=== PATIENT | male | born 1950 | race Caucasian/White ===

== ENCOUNTER 2020-12-27 15:09 | IRF | payer MEDICARE, SELFPAY ==
[2020-12-27 15:10] VITALS: BP 130/65; PULSE 60; RESP 18; TEMP 35.9; O2SAT 97; BMI 33.9
--- NOTE | 2020-12-27 15:18 | ADMGEN ---
This patient, Kaitlyn Hdz, was admitted to [facility] Room 222-02. Patient/family oriented to hospital policies and general routines including ID bracelet, bed and alarms, visiting hours, pain management, procedures, bathroom and other care routines, personal items, smoking policy, room service/diet, and visiting hours. Information on how to activate the Rapid Response Team has been discussed. Patient/Family are encouraged to report perceived risks to care and to ask questions if they do not understand what they are told or what they should do.
[2020-12-27 17:12] LABS: Glucose Point of Care 156 mg/dl (65-105)
--- NOTE | 2020-12-27 17:37 | WPDREHABHP ---
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 Patient is followed by Dr. Clint Madrigal and Dr. Cam Landa for his neurological disorders. Patient presents to [facility] with 6 months progression of shuffling gait and rigidity. patient had a ARCELIA scan on 11/12/2020 which showed asymmetric abnormal mild decreased activity in the right sided caudate nucleus and putamen. Patient has had a differential diagnosis of parkinsonism, Parkinson's disease, autoimmune induced parkinsonism, NPH and drug-induced parkinsonism. Diagnosis is still eluting. Patient was placed on IV meth the prednisolone with fair improvements. Patient had a Marinelli score of 3/56 and then improved to 9/56 after large volume lumbar puncture. NPH is still not been ruled out. Workup lumbar puncture was essentially benign, autoimmune negative, id negative for COVID, UA with no evidence of UTI, nor RPR no HIV. Toxic metabolic workup was also benign. MRI of the CT demonstrated subacute L1 compression fracture. Please see discharge summary for further details. Treatment patient was placed on a trial of Sinemet without adequate response. Patient was given large volume LP for normal pressure hydrocephalus without very significant functional gains. Patient was placed on IV methylprednisone listen alone and will continue for 4 doses every Wednesday for presumed improvement. Recommendations are to start NPH eval only after 6 months once a bill Abilify has been weaned from his system. 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 Patient is to follow up with neurologist Dr. Madrigal and Dr. Ansari. patient's bipolar anxiety and depression worsen during his hospital stay Lexapro was increased to 20 mg daily. Outpatient psychiatrist was notified of this change. Outpatient psychiatrist also recommends increasing Depakote to 750 mg b.i.d. for anxiety and bipolar disorder due to low valproic acid level of 39. Bars will defer that to outpatient setting so that it does not affect the steroid trial. Outpatient psychiatrist is Dr. Cam Kearns. patient obstructive sleep apnea is treated by CPAP but patient declines its use. Patient's insomnia is treated with trazodone 100 mg at bedtime. Patient's hemoglobin A1c was 5.9 patient is on metformin 500 mg b.i.d.. His hypertension is treated with his home medicine of losartan 25 mg daily. Patient's hyperlipidemia is treated with his home medication of at a statin 40 mg daily. Patient did demonstrate some hematuria felt to be due to Hung trauma. Patient has remained incontinent and a condom cath unfortunately does not stay in place. His BPH is treated with his home medication of Flomax 0.4 mg daily. Patient is now being admitted to acute rehab to provide it overall improvement of his mobility back. Therapy was initiated at the acute care facility and the patient transferred to us from [facility] on 12/27/2020 FALLS OR SURGERIES: The patient has had [no] major surgeries in the 100 days prior to admission. he has had falls in the past. He has had no falls that have incurred injury Patient has been fully vaccinated for COVID. He has not been exposed to COVID via any interactions nor has symptoms of COVID., PRIOR LEVEL OF FUNCTION: Eating was [INDEPENDENT] Oral Care was [INDEPENDENT] Toileting Hygiene was [INDEPENDENT] Shower/Bathing
[2020-12-27] MEDS: ACETAMINOPHEN 325 MG TABLET 650 MG PO (20:38)
[2020-12-27] MEDS: DIVALPROEX SODIUM DR 250 MG TABEC 750 MG PO (20:40)
[2020-12-27] MEDS: traZODone HCL 50 MG TABLET 100 MG PO (20:41)
[2020-12-27] MEDS: CYANOCOBALAMIN 1,000 MCG TABLET 2000 MCG PO (20:41)
[2020-12-27] MEDS: polyethylene glycoL 3350 17 GM POWD.PACK PO (20:42)
[2020-12-27] MEDS: TAMSULOSIN HCL 0.4 MG CAPSULE PO (20:42)
[2020-12-27] MEDS: FOLIC ACID 1 MG TABLET PO (20:42)
[2020-12-27 22:00] VITALS: BP 106/45; PULSE 63; RESP 16; TEMP 36.3; O2SAT 96
[2020-12-27] MEDS: CALCIUM CARBONATE (TUMS) 500 MG (200 MG ELEMENTAL) PO (23:16)
[2020-12-28] MEDS: ACETAMINOPHEN 325 MG TABLET 650 MG PO ×2 (05:17→17:34)
[2020-12-28 05:46] LABS: Basophils Percent Auto 0.1 % (0.2-1.2); Hematocrit 41.9 % (42.0-52.0); Hemoglobin 14.5 g/dL (14.0-18.0); Immature Granulocyte Absolute 0.07 K/mm3 (0.00-0.031); Immature Granulocyte Percent A 0.8 % (0-0.5); Lymphocytes Absolute Auto 0.92 K/mm3 (0.9-3.2); Lymphocytes Percent Auto 10.4 % (18.3-44.2); Mean Corpuscular HGB Conc 34.6 g/dl (32-36); Mean Corpuscular Hemoglobin 29.7 pg (26-34); Mean Corpuscular Volume 85.7 fl (80-100); Mean Platelet Volume 9.6 fl (7.4-10.4); Monocytes Percent Auto 10.7 % (2.6-8.5); Neutrophils Absolute Auto 6.9 K/mm3 (1.3-6.7); Platelet Count Result 161 k/mm3 (150-375); Red Blood Count 4.89 M/mm3 (4.6-6.20); Red Cell Distribution Width 13.2 % (11.5-14.5); White Blood Count 8.9 K/mm3 (4.5-10.0)
[2020-12-28 06:00] VITALS: BP 131/79; PULSE 58; RESP 16; TEMP 36.6; O2SAT 96
[2020-12-28 06:12] LABS: Alanine Aminotransferase 76 U/L (4-50); Albumin Level 3.3 g/dL (3.5-5.1); Alkaline Phosphatase 36 U/L (38-126); Anion Gap 4 mmol/L (8-16); Aspartate Amino Transferase 24 U/L (17-59); Bilirubin,Total 0.5 mg/dL (0.2-1.3); Blood Urea Nitrogen 32 mg/dL (9-20); Calcium 8.8 mg/dL (8.4-10.2); Carbon Dioxide 27 mmol/L (22-30); Chloride 102 mmol/L (98-107); Estimated CRCL calculation 79 ml/min; Estimated Glomerular Filt Rate > 60; Glucose 118 mg/dL (75-110); Potassium 4.3 mmol/L (3.4-5.0); Sodium 133 mmol/L (137-145)
[2020-12-28 07:17] LABS: Glucose Point of Care 112 mg/dl (65-105)
[2020-12-28] MEDS: LIDOCAINE 5% PATCH 3 PATCH TRANSDERM (08:35)
[2020-12-28] MEDS: ENOXAPARIN 40 MG/0.4 ML SYRINGE SUB-Q (08:35)
[2020-12-28] MEDS: metFORMIN HCL 500 MG TABLET PO ×2 (08:36→17:33)
[2020-12-28] MEDS: LORATADINE 10 MG TABLET PO (08:36)
[2020-12-28] MEDS: PANTOPRAZOLE 40 MG TABLET PO (08:36)
[2020-12-28] MEDS: LOSARTAN POTASSIUM 25 MG TABLET PO (08:36)
[2020-12-28] MEDS: ESCITALOPRAM OXALATE 10 MG TABLET 20 MG PO (08:36)
[2020-12-28] MEDS: ASPIRIN 81 MG CHEWABLE TABLET PO (08:36)
[2020-12-28] MEDS: DIVALPROEX SODIUM DR 250 MG TABEC 500 MG PO (08:37)
[2020-12-28 10:00] VITALS: BMI 10.0
--- NOTE | 2020-12-28 10:40 | WPDNEURORHBP ---
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 Patient is followed by Dr. Clint Madrigal and Dr. Cam Landa for his neurological disorders. Patient presents to [facility] with 6 months progression of shuffling gait and rigidity. Patient had a ARCELIA scan on 11/12/2020 which showed asymmetric abnormal mild decreased activity in the right sided caudate nucleus and putamen. Patient has had a differential diagnosis of parkinsonism, Parkinson's disease, autoimmune induced parkinsonism, NPH and drug-induced parkinsonism. Diagnosis is still elusive.. Patient was placed on IV methylprednisolone with fair improvements. Patient had a Marinelli score of 3/56 and then improved to 9/56 after large volume lumbar puncture. NPH is still not been ruled out. Workup at [facility]: lumbar puncture was essentially benign, autoimmune negative, id negative for COVID, UA with no evidence of UTI, nor RPR no HIV. Toxic metabolic workup was also benign. MRI of the CT demonstrated subacute L1 compression fracture. Please see discharge summary for further details. Treatment at [facility]: patient was placed on a trial of Sinemet without adequate response. Patient was given large volume LP for normal pressure hydrocephalus without very significant functional gains. Abilify was discontinued with thoughts that this may be the cause of the rigidity. Patient was placed on IV methylprednisone with some mild improvements and will continue for 4 doses every Wednesday for presumed improvements. Recommendations are to start NPH eval only after 6 months once Abilify has been weaned from his system. 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 Patient is to follow up with neurologist Dr. Madrigal and Dr. Ansari Patient's bipolar anxiety and depression worsened during his hospital stay. Lexapro was increased to 20 mg daily. Outpatient psychiatrist was notified of this change. Outpatient psychiatrist also recommends increasing Depakote to 750 mg b.i.d. for anxiety and bipolar disorder due to low valproic acid level of 39. Will defer that to outpatient setting so that it does not affect the steroid trial. Outpatient psychiatrist is Dr. Cam Kearns. Patient obstructive sleep apnea is treated by CPAP but patient declines its use. Patient's insomnia is treated with trazodone 100 mg at bedtime. Patient's hemoglobin A1c was 5.9 patient and is on metformin 500 mg b.i.d.. His hypertension is treated with his home medicine of losartan 25 mg daily. Patient's hyperlipidemia is treated with his home medication of atarvastatin 40 mg daily. Patient did demonstrate some hematuria felt to be due to Hung trauma. Patient has remained incontinent and a condom cath unfortunately does not stay in place. His BPH is treated with his home medication of Flomax 0.4 mg daily. Patient is now being admitted to acute rehab to provide it overall improvement of his mobility back Therapy was initiated at the acute care facility and the patient transferred to us from [facility] on 12/27/2020 Patient with depressive mood and complaints of decreased mobility despite him doing well with PT this am. Review of Systems Constitutional: Constitutional: Reports difficulty sleeping Eyes: Eyes: Reports no additional eye complaints ENT: Reports neck pain Cardiovascular: Cardiovascular: Reports no additional cardiovascular complaints Respiratory: Respiratory: Reports no additional respiratory complaints Gastrointestinal: Gastrointestinal: Reports constipa
[2020-12-28 14:00] VITALS: BP 117/62; PULSE 64; RESP 16; TEMP 36.2; O2SAT 97
[2020-12-28 17:02] LABS: Glucose Point of Care 131 mg/dl (65-105)
[2020-12-28] MEDS: ONDANSETRON HCL ODT 4 MG TABLET PO (17:34)
[2020-12-28] MEDS: TAMSULOSIN HCL 0.4 MG CAPSULE PO (21:11)
[2020-12-28] MEDS: CALCIUM CARBONATE (TUMS) 500 MG (200 MG ELEMENTAL) PO (21:11)
[2020-12-28] MEDS: CYANOCOBALAMIN 1,000 MCG TABLET 2000 MCG PO (21:11)
[2020-12-28] MEDS: FOLIC ACID 1 MG TABLET PO (21:12)
[2020-12-28] MEDS: DIVALPROEX SODIUM DR 250 MG TABEC 750 MG PO (21:12)
[2020-12-28] MEDS: traZODone HCL 50 MG TABLET 100 MG PO (21:13)
[2020-12-28 21:48] VITALS: BP 104/56; PULSE 71; RESP 12; TEMP 36.3; O2SAT 96
[2020-12-29 06:00] VITALS: BP 108/58; PULSE 68; RESP 18; TEMP 36.1; O2SAT 96
[2020-12-29 06:45] LABS: Glucose Point of Care 69 mg/dl (65-105)
[2020-12-29] MEDS: ACETAMINOPHEN 325 MG TABLET 650 MG PO ×2 (06:52→17:55)
[2020-12-29] MEDS: DIVALPROEX SODIUM DR 250 MG TABEC 500 MG PO (08:56)
[2020-12-29] MEDS: ASPIRIN 81 MG CHEWABLE TABLET PO (08:56)
[2020-12-29] MEDS: metFORMIN HCL 500 MG TABLET PO ×2 (08:56→17:55)
[2020-12-29] MEDS: PANTOPRAZOLE 40 MG TABLET PO (08:56)
[2020-12-29] MEDS: LORATADINE 10 MG TABLET PO (08:56)
[2020-12-29] MEDS: ESCITALOPRAM OXALATE 10 MG TABLET 20 MG PO (08:57)
[2020-12-29] MEDS: LOSARTAN POTASSIUM 25 MG TABLET PO (08:57)
[2020-12-29] MEDS: ENOXAPARIN 40 MG/0.4 ML SYRINGE SUB-Q (08:57)
[2020-12-29] MEDS: LIDOCAINE 5% PATCH 3 PATCH TRANSDERM (08:58)
[2020-12-29] MEDS: polyethylene glycoL 3350 17 GM POWD.PACK PO ×2 (08:58→21:03)
--- NOTE | 2020-12-29 12:35 | PCSTNOTE ---
Please refer to the Bedside Swallow Evaluation in the EMR. Please note, silent aspiration cannot be ruled out at bedside.
[2020-12-29 14:00] VITALS: BP 90/53; PULSE 65; RESP 20; TEMP 36.2; O2SAT 96
--- NOTE | 2020-12-29 15:29 | WPDNEURORHBP ---
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 Patient is followed by Dr. Clint Madrigal and Dr. Cam Landa for his neurological disorders. Patient presents to [facility] with 6 months progression of shuffling gait and rigidity. Patient had a ARCELIA scan on 11/12/2020 which showed asymmetric abnormal mild decreased activity in the right sided caudate nucleus and putamen. Patient has had a differential diagnosis of parkinsonism, Parkinson's disease, autoimmune induced parkinsonism, NPH and drug-induced parkinsonism. Diagnosis is still elusive.. Patient was placed on IV methylprednisolone with fair improvements. Patient had a Marinelli score of 3/56 and then improved to 9/56 after large volume lumbar puncture. NPH is still not been ruled out. Workup at [facility]: lumbar puncture was essentially benign, autoimmune negative, id negative for COVID, UA with no evidence of UTI, nor RPR no HIV. Toxic metabolic workup was also benign. MRI of the CT demonstrated subacute L1 compression fracture. Please see discharge summary for further details. Treatment at [facility]: patient was placed on a trial of Sinemet without adequate response. Patient was given large volume LP for normal pressure hydrocephalus without very significant functional gains. Abilify was discontinued with thoughts that this may be the cause of the rigidity. Patient was placed on IV methylprednisone with some mild improvements and will continue for 4 doses every Wednesday for presumed improvements. Recommendations are to start NPH eval only after 6 months once Abilify has been weaned from his system. 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 Patient is to follow up with neurologist Dr. Madrigal and Dr. Ansari Patient's bipolar anxiety and depression worsened during his hospital stay. Lexapro was increased to 20 mg daily. Outpatient psychiatrist was notified of this change. Outpatient psychiatrist also recommends increasing Depakote to 750 mg b.i.d. for anxiety and bipolar disorder due to low valproic acid level of 39. Will defer that to outpatient setting so that it does not affect the steroid trial. Outpatient psychiatrist is Dr. Cam Kearns. Patient obstructive sleep apnea is treated by CPAP but patient declines its use. Patient's insomnia is treated with trazodone 100 mg at bedtime. Patient's hemoglobin A1c was 5.9 patient and is on metformin 500 mg b.i.d.. His hypertension is treated with his home medicine of losartan 25 mg daily. Patient's hyperlipidemia is treated with his home medication of atarvastatin 40 mg daily. Patient did demonstrate some hematuria felt to be due to Hung trauma. Patient has remained incontinent and a condom cath unfortunately does not stay in place. His BPH is treated with his home medication of Flomax 0.4 mg daily. Patient is now being admitted to acute rehab to provide it overall improvement of his mobility back Therapy was initiated at the acute care facility and the patient transferred to us from [facility] on 12/27/2020 Patient with depressive mood and complaints of decreased mobility despite him doing well with PT this am. Review of Systems Constitutional: Constitutional: Reports difficulty sleeping Eyes: Eyes: Reports no additional eye complaints ENT: Reports neck pain Cardiovascular: Cardiovascular: Reports no additional cardiovascular complaints Respiratory: Respiratory: Reports no additional respiratory complaints Gastrointestinal: Gastrointestinal: Reports constipa
[2020-12-29 16:42] LABS: Glucose Point of Care 84 mg/dl (65-105)
[2020-12-29] MEDS: CYCLOBENZAPRINE HCL 5 MG TABLET PO (17:56)
[2020-12-29 20:00] VITALS: PULSE 60; RESP 16; O2SAT 94
[2020-12-29] MEDS: TAMSULOSIN HCL 0.4 MG CAPSULE PO (21:03)
[2020-12-29] MEDS: FOLIC ACID 1 MG TABLET PO (21:03)
[2020-12-29] MEDS: DIVALPROEX SODIUM DR 250 MG TABEC 750 MG PO (21:03)
[2020-12-29] MEDS: traZODone HCL 50 MG TABLET 100 MG PO (21:03)
[2020-12-29] MEDS: CYANOCOBALAMIN 1,000 MCG TABLET 2000 MCG PO (21:04)
[2020-12-29 21:57] VITALS: BP 114/66; PULSE 60; RESP 16; TEMP 36.4; O2SAT 94
[2020-12-30 06:00] VITALS: BP 108/62; PULSE 65; RESP 16; TEMP 35.9; O2SAT 99
[2020-12-30 06:59] LABS: Glucose Point of Care 71 mg/dl (65-105)
[2020-12-30] MEDS: ASPIRIN 81 MG CHEWABLE TABLET PO (08:54)
[2020-12-30] MEDS: metFORMIN HCL 500 MG TABLET PO ×2 (08:54→17:25)
[2020-12-30] MEDS: polyethylene glycoL 3350 17 GM POWD.PACK PO ×2 (08:55→20:32)
[2020-12-30] MEDS: ESCITALOPRAM OXALATE 10 MG TABLET 20 MG PO (08:55)
[2020-12-30] MEDS: DIVALPROEX SODIUM DR 250 MG TABEC 500 MG PO (08:55)
[2020-12-30] MEDS: ENOXAPARIN 40 MG/0.4 ML SYRINGE SUB-Q (08:55)
[2020-12-30] MEDS: LORATADINE 10 MG TABLET PO (08:56)
[2020-12-30] MEDS: LOSARTAN POTASSIUM 25 MG TABLET PO (08:56)
[2020-12-30] MEDS: LIDOCAINE 5% PATCH 3 PATCH TRANSDERM (08:56)
[2020-12-30] MEDS: PANTOPRAZOLE 40 MG TABLET PO (08:56)
--- NOTE | 2020-12-30 10:50 | RPD ---
Addendum entered by Shweta Martines 12/30/20 11:37: Error on LOS: The patients anticipated length of stay is approximately 10-14 days. Original Note: INDIVIDUALIZED PLAN OF CARE FOR Kaitlyn Hdz Brief Synthesis of Pre-Admission Screen, Post-Admission Evaluation and Therapy Evaluations: The patient presents to rehab with autoimmune Parkinsonism. Comorbidities include asymmetric rigidity, constipation, bipolar disorder, obstructive sleep apnea, type 2 diabetes mellitus, insomnia, hypertension, hyperlipidemia, macroscopic hematuria, dysuria, and BPH. The complexity of the patient's medical management, nursing, and therapy needs require an inpatient rehab hospital stay with a physician-led interdisciplinary team approach. The patient?s needs will be best met in an intensive program vs. at a lower level of care. The patient requires physician services for medical oversight, management of complications in setting of present comorbidities, and coordination of care. Emotional needs will be monitored. The patient needs physician monitoring and treatment of asymmetric rigidity, constipation, bipolar disorder, obstructive sleep apnea, type 2 diabetes mellitus, insomnia, hypertension, hyperlipidemia, macroscopic hematuria, dysuria, BPH, monitoring for adverse reactions to new medications, monitoring of infection, and pain control. The patient requires nursing services for frequent neuro checks, anticoagulation therapy, medication management and education, pressure relief and skin care management, monitoring of labs, bowel and bladder training, diabetes management and education, IV administration, and fall/safety precautions. 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 Treatments may include: Therapeutic Exercise, Gait Training, Neuromuscular Re-education, Transfer Training, Community Reintegration, Bed Mobility, Patient/Family Education, Wheelchair Mobility Group Therapy/Concurrent Therapy Rationales: -Improve attention span during functional activities in a distracted environment. -Enhance problem solving and/or adequate judgment skills during functional activities in a distracted environment. -Promote increased safety awareness in a distracted environment to reduce fall risk with functional tasks, transfers, and ambulation to allow a more safe, self-sufficient return to the home environment. -Improve dynamic balance skills to promote safety and independence with functional activities in a distracted environment for maximum gain. Occupational Therapy: 5 days per week for 90 minutes. Treatments may include: Therapeutic Exercise, Therapeutic Activity, Cognitive Training, Self-Care Transfer Training, Community Reintegration, Home Management, Patient/Family Education, Wheelchair Mobility Training, Energy Conservation Training Group Therapy/Concurrent Therapy Rationales: -Allow therapist to observe and teach generalization and carry-over of skills learned in individual therapy. -Enhance problem solving and sequencing skills during therapeutic activities in a distracted environment. -Promote increased safety awareness in a realistic setting to reduce fall risk with functional tasks due to visual and verbal distractions. -Increase functional level with ADLs, ADL transfers and use of adaptive equipment through therapeutic activities with others while promoting safety to allow a more safe, self-sufficient return home. Medical Prognosis: Good Anticipated Length of Stay: 7 days Rehab Goals: Eating Goal: 06-Independent Oral Hygiene Goal: 06-Independent Toileting Hygiene Goal: 04-Supervision or Touching Assistance Shower/Bathe Self Goal: 04-Supervision or Touching Assistance Upper Body Dressing Goal: 04-Supervision or Touching Assistance [place]
[2020-12-30 11:04] VITALS: BMI 33.9
[2020-12-30] MEDS: methylPREDNISolone SOD SUCC 1,000 MG in DEXTROSE 5% 100 ML 200 MG IVPB (12:56)
[2020-12-30 14:00] VITALS: BP 119/71; PULSE 66; RESP 18; TEMP 36; O2SAT 97
--- NOTE | 2020-12-30 15:10 | PCPTNOTE ---
Kaitlyn Hdz was evaluated for a 2 wheeled walker on 12/30/2020 by this physical therapist. The 2 wheeled walker will resolve patient's mobility limitations and will be used for ADL's within the home. The patient can safely use the 2 wheeled walker. ?The 2 wheeled walked will resolve the patient?s mobility deficits, including posterior lean, balance deficits, and severe rigidity.
--- NOTE | 2020-12-30 16:22 | WPDNEURORHBP ---
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 Patient is followed by Dr. Clint Madrigal and Dr. Cam Landa for his neurological disorders. Patient presents to [facility] with 6 months progression of shuffling gait and rigidity. Patient had a ARCELIA scan on 11/12/2020 which showed asymmetric abnormal mild decreased activity in the right sided caudate nucleus and putamen. Patient has had a differential diagnosis of parkinsonism, Parkinson's disease, autoimmune induced parkinsonism, NPH and drug-induced parkinsonism. Diagnosis is still elusive.. Patient was placed on IV methylprednisolone with fair improvements. Patient had a Marinelli score of 3/56 and then improved to 9/56 after large volume lumbar puncture. NPH is still not been ruled out. Workup at [facility]: lumbar puncture was essentially benign, autoimmune negative, id negative for COVID, UA with no evidence of UTI, nor RPR no HIV. Toxic metabolic workup was also benign. MRI of the CT demonstrated subacute L1 compression fracture. Please see discharge summary for further details. Treatment at [facility]: patient was placed on a trial of Sinemet without adequate response. Patient was given large volume LP for normal pressure hydrocephalus without very significant functional gains. Abilify was discontinued with thoughts that this may be the cause of the rigidity. Patient was placed on IV methylprednisone with some mild improvements and will continue for 4 doses every Wednesday for presumed improvements. Recommendations are to start NPH eval only after 6 months once Abilify has been weaned from his system. 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 Patient is to follow up with neurologist Dr. Madrigal and Dr. Ansari Patient's bipolar anxiety and depression worsened during his hospital stay. Lexapro was increased to 20 mg daily. Outpatient psychiatrist was notified of this change. Outpatient psychiatrist also recommends increasing Depakote to 750 mg b.i.d. for anxiety and bipolar disorder due to low valproic acid level of 39. Will defer that to outpatient setting so that it does not affect the steroid trial. Outpatient psychiatrist is Dr. Cam Kearns. Patient obstructive sleep apnea is treated by CPAP but patient declines its use. Patient's insomnia is treated with trazodone 100 mg at bedtime. Patient's hemoglobin A1c was 5.9 patient and is on metformin 500 mg b.i.d.. His hypertension is treated with his home medicine of losartan 25 mg daily. Patient's hyperlipidemia is treated with his home medication of atarvastatin 40 mg daily. Patient did demonstrate some hematuria felt to be due to Hung trauma. Patient has remained incontinent and a condom cath unfortunately does not stay in place. His BPH is treated with his home medication of Flomax 0.4 mg daily. Patient is now being admitted to acute rehab to provide it overall improvement of his mobility back Therapy was initiated at the acute care facility and the patient transferred to us from [facility] on 12/27/2020 Patient able to participate with therapy. Movements are slow. Review of Systems Review of Systems: Narrative: Patient with chronic pain and pessimisn Functional Status Ambulation Ability Ability to Ambulate 10 Feet: Total Assistance X 1 Ability to Ambulate 50 Feet With 2 Turns: Total Assistance X 1 Ability to Ambulate 150 Feet: Total Assistance X 1 Ambulation Assistive Devices: Walker, Wheeled Exam Const: General: cooperative and no acute distress Nutriti
[2020-12-30 17:19] LABS: Glucose Point of Care 132 mg/dl (65-105)
[2020-12-30] MEDS: CYANOCOBALAMIN 1,000 MCG TABLET 2000 MCG PO (20:29)
[2020-12-30] MEDS: traZODone HCL 50 MG TABLET 100 MG PO (20:30)
[2020-12-30] MEDS: DIVALPROEX SODIUM DR 250 MG TABEC 750 MG PO (20:30)
[2020-12-30] MEDS: TAMSULOSIN HCL 0.4 MG CAPSULE PO (20:31)
[2020-12-30] MEDS: FOLIC ACID 1 MG TABLET PO (20:33)
[2020-12-30 22:00] VITALS: BP 120/70; PULSE 64; RESP 16; TEMP 36.3; O2SAT 98
[2020-12-30] MEDS: ACETAMINOPHEN 325 MG TABLET 650 MG PO (22:46)
[2020-12-31] MEDS: ACETAMINOPHEN 325 MG TABLET 650 MG PO (05:54)
[2020-12-31 06:00] VITALS: BP 141/97; PULSE 69; RESP 22; TEMP 35.8; O2SAT 100
[2020-12-31 06:10] LABS: Glucose Point of Care 132 mg/dl (65-105)
[2020-12-31 08:00] VITALS: PULSE 69; RESP 22; O2SAT 94
[2020-12-31] MEDS: PANTOPRAZOLE 40 MG TABLET PO (09:50)
[2020-12-31] MEDS: metFORMIN HCL 500 MG TABLET PO ×2 (09:50→17:03)
[2020-12-31] MEDS: ASPIRIN 81 MG CHEWABLE TABLET PO (09:51)
[2020-12-31] MEDS: DIVALPROEX SODIUM DR 250 MG TABEC 500 MG PO (09:51)
[2020-12-31] MEDS: LORATADINE 10 MG TABLET PO (09:52)
[2020-12-31] MEDS: LOSARTAN POTASSIUM 25 MG TABLET PO (09:52)
[2020-12-31] MEDS: ESCITALOPRAM OXALATE 10 MG TABLET 20 MG PO (09:52)
[2020-12-31] MEDS: ENOXAPARIN 40 MG/0.4 ML SYRINGE SUB-Q (09:52)
[2020-12-31] MEDS: polyethylene glycoL 3350 17 GM POWD.PACK PO ×2 (10:04→20:48)
--- NOTE | 2020-12-31 11:53 | PCPTNOTE ---
Sara Barrios PTA completed an inpatient rehab wheelchair evaluation on Kaitlyn Hdz on 12/31/2020. The patient is unable to safely and independently ambulate household distances due to their current impairments. Their diagnosis is AUTOIMMUNE PARKINSONISM and their impairments include decreased strength, decreased endurance, decreased range of motion, decreased balance and lower extremity weakness. Kaitlyn's weight bearing status is weight-bearing as tolerated on the bilateral lower legs. The patient demonstrates significant functional mobility limitations that impair their ability to participate in mobility-related activities of daily living (MRADLs), including toileting, feeding, dressing, grooming, and bathing in the customary locations in the home. These limitations cannot be sufficiently resolved by the use of an appropriately fitted cane or walker. It is recommended that the patient utilize a wheelchair for functional mobility within the home in order to facilitate optimal safety, independence and participation in all MRADL's and adequately access their home environment on a regular basis. The patient's home provides adequate access between rooms, maneuvering space, and surfaces to accommodate the recommended wheelchair. The use of a wheelchair for functional mobility is strongly recommended and the patient is receptive to using the wheelchair. The use of this wheelchair will significantly improve the patient's ability to participate in MRADLS and the patient will use it on a regular basis in the home. This will facilitate optimal safety, independence, and participation. The patient has demonstrated sufficient physical and mental capabilities needed to safely propel a manual wheelchair that is provided in the home during a typical day. Recommended Wheelchair Frame: Standard Recommended Wheelchair Size: 18x18 Recommended Wheelchair Cushion:Standard Wheelchair Leg Recommendations: Swing away -Anti-tippers are recommended due to patient demonstrating increased risk for falls. They would benefit from anti-tippers with added safety and stabilization. Sara Zaragozalang SKELTON 12/31/2020 Evaluating Therapist Date I agree with and certify that the above recommendation is medically necessary. Referring Physician Date I agree with and certify that the above recommendation is medically necessary. Referring Physician Date
[2020-12-31 14:00] VITALS: BP 143/80; PULSE 69; RESP 22; TEMP 36.4; O2SAT 94
--- NOTE | 2020-12-31 14:20 | WPDNEURORHBP ---
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 Patient is followed by Dr. Clint Madrigal and Dr. Cam Landa for his neurological disorders. Patient presents to [facility] with 6 months progression of shuffling gait and rigidity. Patient had a ARCELIA scan on 11/12/2020 which showed asymmetric abnormal mild decreased activity in the right sided caudate nucleus and putamen. Patient has had a differential diagnosis of parkinsonism, Parkinson's disease, autoimmune induced parkinsonism, NPH and drug-induced parkinsonism. Diagnosis is still elusive.. Patient was placed on IV methylprednisolone with fair improvements. Patient had a Marinelli score of 3/56 and then improved to 9/56 after large volume lumbar puncture. NPH is still not been ruled out. Workup at [facility]: lumbar puncture was essentially benign, autoimmune negative, id negative for COVID, UA with no evidence of UTI, nor RPR no HIV. Toxic metabolic workup was also benign. MRI of the CT demonstrated subacute L1 compression fracture. Please see discharge summary for further details. Treatment at [facility]: patient was placed on a trial of Sinemet without adequate response. Patient was given large volume LP for normal pressure hydrocephalus without very significant functional gains. Abilify was discontinued with thoughts that this may be the cause of the rigidity. Patient was placed on IV methylprednisone with some mild improvements and will continue for 4 doses every Wednesday for presumed improvements. Recommendations are to start NPH eval only after 6 months once Abilify has been weaned from his system. 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 Patient is to follow up with neurologist Dr. Madrigal and Dr. Ansari Patient's bipolar anxiety and depression worsened during his hospital stay. Lexapro was increased to 20 mg daily. Outpatient psychiatrist was notified of this change. Outpatient psychiatrist also recommends increasing Depakote to 750 mg b.i.d. for anxiety and bipolar disorder due to low valproic acid level of 39. Will defer that to outpatient setting so that it does not affect the steroid trial. Outpatient psychiatrist is Dr. Cam Kearns. Patient obstructive sleep apnea is treated by CPAP but patient declines its use. Patient's insomnia is treated with trazodone 100 mg at bedtime. Patient's hemoglobin A1c was 5.9 patient and is on metformin 500 mg b.i.d.. His hypertension is treated with his home medicine of losartan 25 mg daily. Patient's hyperlipidemia is treated with his home medication of atarvastatin 40 mg daily. Patient did demonstrate some hematuria felt to be due to Hung trauma. Patient has remained incontinent and a condom cath unfortunately does not stay in place. His BPH is treated with his home medication of Flomax 0.4 mg daily. Patient is now being admitted to acute rehab to provide it overall improvement of his mobility back Therapy was initiated at the acute care facility and the patient transferred to us from [facility] on 12/27/2020 12/31/[address] Kearns regarding depakote dosing. Dtr relates that Dr. Kearns would like the depakote to be decreased to 250mg BID. Awaiting call back from Dr. Kearns to verify Review of Systems Constitutional: Constitutional: Reports difficulty sleeping Eyes: Eyes: Reports no additional eye complaints ENT: Reports neck pain Cardiovascular: Cardiovascular: Reports no additional cardiovascular complaints Respiratory: Respiratory: Reports no megan
[2020-12-31 17:04] LABS: Glucose Point of Care 94 mg/dl (65-105)
[2020-12-31] MEDS: DIVALPROEX SODIUM DR 250 MG TABEC PO (17:04)
[2020-12-31] MEDS: CYANOCOBALAMIN 1,000 MCG TABLET 2000 MCG PO (20:47)
[2020-12-31] MEDS: FOLIC ACID 1 MG TABLET PO (20:47)
[2020-12-31] MEDS: TAMSULOSIN HCL 0.4 MG CAPSULE PO (20:48)
[2020-12-31] MEDS: traZODone HCL 50 MG TABLET 100 MG PO (20:48)
[2020-12-31 22:00] VITALS: BP 95/47; PULSE 65; RESP 18; TEMP 35.9; O2SAT 97
[2021-01-01 06:00] VITALS: BP 102/57; PULSE 58; RESP 16; TEMP 35.8; O2SAT 99
[2021-01-01 06:00] LABS: Glucose Point of Care 91 mg/dl (65-105)
--- NOTE | 2021-01-01 08:28 | WPDNEURORHBP ---
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 Patient is followed by Dr. Clint Madrigal and Dr. Cam Landa for his neurological disorders. Patient presents to [facility] with 6 months progression of shuffling gait and rigidity. Patient had a ARCELIA scan on 11/12/2020 which showed asymmetric abnormal mild decreased activity in the right sided caudate nucleus and putamen. Patient has had a differential diagnosis of parkinsonism, Parkinson's disease, autoimmune induced parkinsonism, NPH and drug-induced parkinsonism. Diagnosis is still elusive.. Patient was placed on IV methylprednisolone with fair improvements. Patient had a Marinelli score of 3/56 and then improved to 9/56 after large volume lumbar puncture. NPH is still not been ruled out. Workup at [facility]: lumbar puncture was essentially benign, autoimmune negative, id negative for COVID, UA with no evidence of UTI, nor RPR no HIV. Toxic metabolic workup was also benign. MRI of the CT demonstrated subacute L1 compression fracture. Please see discharge summary for further details. Treatment at [facility]: patient was placed on a trial of Sinemet without adequate response. Patient was given large volume LP for normal pressure hydrocephalus without very significant functional gains. Abilify was discontinued with thoughts that this may be the cause of the rigidity. Patient was placed on IV methylprednisone with some mild improvements and will continue for 4 doses every Wednesday for presumed improvements. Recommendations are to start NPH eval only after 6 months once Abilify has been weaned from his system. 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 Patient is to follow up with neurologist Dr. Madrigal and Dr. Ansari Patient's bipolar anxiety and depression worsened during his hospital stay. Lexapro was increased to 20 mg daily. Outpatient psychiatrist was notified of this change. Outpatient psychiatrist also recommends increasing Depakote to 750 mg b.i.d. for anxiety and bipolar disorder due to low valproic acid level of 39. Will defer that to outpatient setting so that it does not affect the steroid trial. Outpatient psychiatrist is Dr. Cam Kearns. Patient obstructive sleep apnea is treated by CPAP but patient declines its use. Patient's insomnia is treated with trazodone 100 mg at bedtime. Patient's hemoglobin A1c was 5.9 patient and is on metformin 500 mg b.i.d.. His hypertension is treated with his home medicine of losartan 25 mg daily. Patient's hyperlipidemia is treated with his home medication of atarvastatin 40 mg daily. Patient did demonstrate some hematuria felt to be due to Hung trauma. Patient has remained incontinent and a condom cath unfortunately does not stay in place. His BPH is treated with his home medication of Flomax 0.4 mg daily. Patient is now being admitted to acute rehab to provide it overall improvement of his mobility back Therapy was initiated at the acute care facility and the patient transferred to us from [facility] on 12/27/2020 12/31/[address] Kearns regarding depakote dosing. Dtr relates that Dr. Kearns would like the depakote to be decreased to 250mg BID. Verification by DR Kearns with the potential to discontinue all together. 01/01/21 patient continues to be pessimistic with all his responses. Patient is more animated Review of Systems Constitutional: Constitutional: Reports difficulty sleeping Eyes: Eyes: Reports no additional eye complaints ENT: Reports neck pain
[2021-01-01] MEDS: CYCLOBENZAPRINE HCL 5 MG TABLET PO ×2 (08:34→19:04)
[2021-01-01] MEDS: ACETAMINOPHEN 325 MG TABLET 650 MG PO ×2 (08:34→19:04)
[2021-01-01] MEDS: ASPIRIN 81 MG CHEWABLE TABLET PO (08:36)
[2021-01-01] MEDS: metFORMIN HCL 500 MG TABLET PO ×2 (08:36→17:13)
[2021-01-01] MEDS: DIVALPROEX SODIUM DR 250 MG TABEC PO ×2 (08:36→17:13)
[2021-01-01] MEDS: ENOXAPARIN 40 MG/0.4 ML SYRINGE SUB-Q (08:37)
[2021-01-01] MEDS: LORATADINE 10 MG TABLET PO (08:37)
[2021-01-01] MEDS: ESCITALOPRAM OXALATE 10 MG TABLET 20 MG PO (08:37)
[2021-01-01] MEDS: LIDOCAINE 5% PATCH 3 PATCH TRANSDERM (08:37)
[2021-01-01] MEDS: LOSARTAN POTASSIUM 25 MG TABLET PO (08:37)
[2021-01-01] MEDS: polyethylene glycoL 3350 17 GM POWD.PACK PO (08:38)
[2021-01-01] MEDS: PANTOPRAZOLE 40 MG TABLET PO (08:38)
[2021-01-01 11:54] LABS: Glucose Point of Care 88 mg/dl (65-105)
[2021-01-01 14:00] VITALS: BP 103/61; PULSE 67; RESP 18; TEMP 36.4; O2SAT 98
[2021-01-01 17:16] LABS: Glucose Point of Care 81 mg/dl (65-105)
[2021-01-01] MEDS: FOLIC ACID 1 MG TABLET PO (21:16)
[2021-01-01] MEDS: CYANOCOBALAMIN 1,000 MCG TABLET 2000 MCG PO (21:16)
[2021-01-01] MEDS: TAMSULOSIN HCL 0.4 MG CAPSULE PO (21:17)
[2021-01-01] MEDS: traZODone HCL 50 MG TABLET 100 MG PO (21:17)
[2021-01-01 22:00] VITALS: BP 143/73; PULSE 78; RESP 18; TEMP 36; O2SAT 98
[2021-01-02] MEDS: ACETAMINOPHEN 325 MG TABLET 650 MG PO ×2 (05:08→12:00)
[2021-01-02] MEDS: CYCLOBENZAPRINE HCL 5 MG TABLET PO ×2 (05:08→12:50)
[2021-01-02 06:00] VITALS: BP 128/84; PULSE 67; RESP 24; TEMP 35.9; O2SAT 99
[2021-01-02 06:09] LABS: Glucose Point of Care 95 mg/dl (65-105)
[2021-01-02 08:00] VITALS: O2SAT 99
[2021-01-02] MEDS: DIVALPROEX SODIUM DR 250 MG TABEC PO ×2 (09:20→16:29)
[2021-01-02] MEDS: ASPIRIN 81 MG CHEWABLE TABLET PO (09:20)
[2021-01-02] MEDS: ESCITALOPRAM OXALATE 10 MG TABLET 20 MG PO (09:20)
[2021-01-02] MEDS: metFORMIN HCL 500 MG TABLET PO ×2 (09:21→16:30)
[2021-01-02] MEDS: LORATADINE 10 MG TABLET PO (09:21)
[2021-01-02] MEDS: PANTOPRAZOLE 40 MG TABLET PO (09:21)
[2021-01-02] MEDS: ENOXAPARIN 40 MG/0.4 ML SYRINGE SUB-Q (09:21)
[2021-01-02] MEDS: LIDOCAINE 5% PATCH 3 PATCH TRANSDERM (09:22)
[2021-01-02] MEDS: LOSARTAN POTASSIUM 25 MG TABLET PO (09:22)
[2021-01-02] MEDS: polyethylene glycoL 3350 17 GM POWD.PACK PO (09:22)
[2021-01-02 14:00] VITALS: BP 96/58; PULSE 66; RESP 16; TEMP 36.3; O2SAT 97
--- NOTE | 2021-01-02 14:00 | WPDNEURORHBP ---
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 Patient is followed by Dr. Clint Madrigal and Dr. Cam Landa for his neurological disorders. Patient presents to [facility] with 6 months progression of shuffling gait and rigidity. Patient had a ARCELIA scan on 11/12/2020 which showed asymmetric abnormal mild decreased activity in the right sided caudate nucleus and putamen. Patient has had a differential diagnosis of parkinsonism, Parkinson's disease, autoimmune induced parkinsonism, NPH and drug-induced parkinsonism. Diagnosis is still elusive.. Patient was placed on IV methylprednisolone with fair improvements. Patient had a Marinelli score of 3/56 and then improved to 9/56 after large volume lumbar puncture. NPH is still not been ruled out. Workup at [facility]: lumbar puncture was essentially benign, autoimmune negative, id negative for COVID, UA with no evidence of UTI, nor RPR no HIV. Toxic metabolic workup was also benign. MRI of the CT demonstrated subacute L1 compression fracture. Please see discharge summary for further details. Treatment at [facility]: patient was placed on a trial of Sinemet without adequate response. Patient was given large volume LP for normal pressure hydrocephalus without very significant functional gains. Abilify was discontinued with thoughts that this may be the cause of the rigidity. Patient was placed on IV methylprednisone with some mild improvements and will continue for 4 doses every Wednesday for presumed improvements. Recommendations are to start NPH eval only after 6 months once Abilify has been weaned from his system. 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 Patient is to follow up with neurologist Dr. Madrigal and Dr. Ansari Patient's bipolar anxiety and depression worsened during his hospital stay. Lexapro was increased to 20 mg daily. Outpatient psychiatrist was notified of this change. Outpatient psychiatrist also recommends increasing Depakote to 750 mg b.i.d. for anxiety and bipolar disorder due to low valproic acid level of 39. Will defer that to outpatient setting so that it does not affect the steroid trial. Outpatient psychiatrist is Dr. Cam Kearns. Patient obstructive sleep apnea is treated by CPAP but patient declines its use. Patient's insomnia is treated with trazodone 100 mg at bedtime. Patient's hemoglobin A1c was 5.9 patient and is on metformin 500 mg b.i.d.. His hypertension is treated with his home medicine of losartan 25 mg daily. Patient's hyperlipidemia is treated with his home medication of atarvastatin 40 mg daily. Patient did demonstrate some hematuria felt to be due to Hung trauma. Patient has remained incontinent and a condom cath unfortunately does not stay in place. His BPH is treated with his home medication of Flomax 0.4 mg daily. Patient is now being admitted to acute rehab to provide it overall improvement of his mobility back Therapy was initiated at the acute care facility and the patient transferred to us from [facility] on 12/27/2020 12/31/[address] Kearns regarding depakote dosing. Dtr relates that Dr. Kearns would like the depakote to be decreased to 250mg BID. Verification by DR Kearns with the potential to discontinue all together. 01/02/21 Blood pressure at times run low. Blood pressure can be 90s over 50s. Will decrease Cozaar from 25 mg to 12.5 mg b.i.d. blood sugars remain 80s to 90s on Glucophage 500 mg b.i.d.. Patient voices no new complaints but remains pessimistic. Revi
[2021-01-02] MEDS: CALCIUM CARBONATE (TUMS) 500 MG (200 MG ELEMENTAL) PO (16:28)
[2021-01-02 16:34] LABS: Glucose Point of Care 81 mg/dl (65-105)
[2021-01-02] MEDS: TAMSULOSIN HCL 0.4 MG CAPSULE PO (21:03)
[2021-01-02] MEDS: traZODone HCL 50 MG TABLET 100 MG PO (21:03)
[2021-01-02] MEDS: CYANOCOBALAMIN 1,000 MCG TABLET 2000 MCG PO (21:03)
[2021-01-02] MEDS: FOLIC ACID 1 MG TABLET PO (21:05)
[2021-01-02 22:00] VITALS: BP 129/71; PULSE 74; RESP 18; TEMP 36.1; O2SAT 98
[2021-01-03 06:00] VITALS: BP 118/67; PULSE 63; RESP 20; TEMP 35.9; O2SAT 100
[2021-01-03 06:51] LABS: Glucose Point of Care 105 mg/dl (65-105)
[2021-01-03] MEDS: DIVALPROEX SODIUM DR 250 MG TABEC PO ×2 (08:43→17:29)
[2021-01-03] MEDS: metFORMIN HCL 500 MG TABLET PO ×2 (08:43→17:29)
[2021-01-03] MEDS: PANTOPRAZOLE 40 MG TABLET PO (08:44)
[2021-01-03] MEDS: ESCITALOPRAM OXALATE 10 MG TABLET 20 MG PO (08:44)
[2021-01-03] MEDS: LOSARTAN POTASSIUM 12.5 MG TABLET PO (08:44)
[2021-01-03] MEDS: ASPIRIN 81 MG CHEWABLE TABLET PO (08:44)
[2021-01-03] MEDS: CYCLOBENZAPRINE HCL 5 MG TABLET PO ×3 (08:45→21:19)
[2021-01-03] MEDS: ENOXAPARIN 40 MG/0.4 ML SYRINGE SUB-Q (08:45)
[2021-01-03] MEDS: ACETAMINOPHEN 325 MG TABLET 650 MG PO ×3 (08:45→17:31)
[2021-01-03] MEDS: LIDOCAINE 5% PATCH 3 PATCH TRANSDERM (08:45)
[2021-01-03] MEDS: polyethylene glycoL 3350 17 GM POWD.PACK PO ×2 (08:46→21:24)
--- NOTE | 2021-01-03 10:32 | WPDNEURORHBP ---
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 Patient is followed by Dr. Clint Madrigal and Dr. Cam Landa for his neurological disorders. Patient presents to [facility] with 6 months progression of shuffling gait and rigidity. Patient had a ARCELIA scan on 11/12/2020 which showed asymmetric abnormal mild decreased activity in the right sided caudate nucleus and putamen. Patient has had a differential diagnosis of parkinsonism, Parkinson's disease, autoimmune induced parkinsonism, NPH and drug-induced parkinsonism. Diagnosis is still elusive.. Patient was placed on IV methylprednisolone with fair improvements. Patient had a Marinelli score of 3/56 and then improved to 9/56 after large volume lumbar puncture. NPH is still not been ruled out. Workup at [facility]: lumbar puncture was essentially benign, autoimmune negative, id negative for COVID, UA with no evidence of UTI, nor RPR no HIV. Toxic metabolic workup was also benign. MRI of the CT demonstrated subacute L1 compression fracture. Please see discharge summary for further details. Treatment at [facility]: patient was placed on a trial of Sinemet without adequate response. Patient was given large volume LP for normal pressure hydrocephalus without very significant functional gains. Abilify was discontinued with thoughts that this may be the cause of the rigidity. Patient was placed on IV methylprednisone with some mild improvements and will continue for 4 doses every Wednesday for presumed improvements. Recommendations are to start NPH eval only after 6 months once Abilify has been weaned from his system. 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 Patient is to follow up with neurologist Dr. Madrigal and Dr. Ansari Patient's bipolar anxiety and depression worsened during his hospital stay. Lexapro was increased to 20 mg daily. Outpatient psychiatrist was notified of this change. Outpatient psychiatrist also recommends increasing Depakote to 750 mg b.i.d. for anxiety and bipolar disorder due to low valproic acid level of 39. Will defer that to outpatient setting so that it does not affect the steroid trial. Outpatient psychiatrist is Dr. Cam Kearns. Patient obstructive sleep apnea is treated by CPAP but patient declines its use. Patient's insomnia is treated with trazodone 100 mg at bedtime. Patient's hemoglobin A1c was 5.9 patient and is on metformin 500 mg b.i.d.. His hypertension is treated with his home medicine of losartan 25 mg daily. Patient's hyperlipidemia is treated with his home medication of atarvastatin 40 mg daily. Patient did demonstrate some hematuria felt to be due to Hung trauma. Patient has remained incontinent and a condom cath unfortunately does not stay in place. His BPH is treated with his home medication of Flomax 0.4 mg daily. Patient is now being admitted to acute rehab to provide it overall improvement of his mobility back Therapy was initiated at the acute care facility and the patient transferred to us from [facility] on 12/27/2020 12/31/[address] Kearns regarding depakote dosing. Dtr relates that Dr. Kearns would like the depakote to be decreased to 250mg BID. Verification by DR Kearns with the potential to discontinue all together. 01/02/21 Blood pressure at times run low. Blood pressure can be 90s over 50s. Will decrease Cozaar from 25 mg to 12.5 mg daily. blood sugars remain 80s to 90s on Glucophage 500 mg b.i.d.. Patient voices no new complaints but remains pessimistic. 01/03/21
--- NOTE | 2021-01-03 10:38 | PCDIET ---
Nutrition Follow-Up Complete: Nutrition Diagnosis: Inadequate oral intake related to poor appetite as evidenced by patient statements, recorded average intake of less than 50% of meals. Nutrition Goal: Patient to consume 50% of meals/supplements or greater. Goal met. Patient reports not taking Glucerna Shake, but average intake since 01/02/21 has been 74% of recorded meals. Recommend stopping Glucerna due to refusal. Encouraged patient to continue to choose protein rich foods. Last recorded weight is 113.4 kg. Recommend obtaining weekly weights. Bowel Motility: Last documented BM on 01/02/21. Labs Reviewed: Glu (105) Meds Noted: Tums, Vitamin B12, Depakote, Folic Acid, Cozaar, Glucophage, Solu-Medrol, Protonix, Miralax Additional Notes: No documented skin breakdown. Will continue to monitor with same goal. Nutrition Monitoring and Evaluation: Follow up in 7 days.
[2021-01-03 12:41] VITALS: TEMP 35.9
[2021-01-03 14:00] VITALS: BP 111/59; PULSE 82; RESP 20; TEMP 36.2; O2SAT 98
[2021-01-03 17:31] VITALS: TEMP 36.2
[2021-01-03 20:00] VITALS: PULSE 65; RESP 16; O2SAT 93
[2021-01-03 21:00] VITALS: BP 121/67; PULSE 65; RESP 16; TEMP 36; O2SAT 93
[2021-01-03] MEDS: TAMSULOSIN HCL 0.4 MG CAPSULE PO (21:19)
[2021-01-03] MEDS: FOLIC ACID 1 MG TABLET PO (21:19)
[2021-01-03] MEDS: CYANOCOBALAMIN 1,000 MCG TABLET 2000 MCG PO (21:19)
[2021-01-03] MEDS: traZODone HCL 50 MG TABLET 100 MG PO (21:19)
[2021-01-04 04:56] LABS: Eosinophils Absolute Auto 0.1 K/mm3 (0-0.3); Eosinophils Percent Auto 1.8 % (0-4.4); Hematocrit 40.4 % (42.0-52.0); Hemoglobin 13.5 g/dL (14.0-18.0); Immature Granulocyte Absolute 0.05 K/mm3 (0.00-0.031); Lymphocytes Absolute Auto 1.56 K/mm3 (0.9-3.2); Mean Corpuscular HGB Conc 33.4 g/dl (32-36); Mean Corpuscular Hemoglobin 30.1 pg (26-34); Mean Platelet Volume 9.5 fl (7.4-10.4); Monocytes Absolute Auto 0.5 K/mm3 (0.1-0.6); Monocytes Percent Auto 9.5 % (2.6-8.5); Neutrophils Absolute Auto 2.9 K/mm3 (1.3-6.7); Neutrophils Percent Auto 56.7 % (45.5-73.1); Platelet Count Result 157 k/mm3 (150-375); Red Blood Count 4.49 M/mm3 (4.6-6.20); Red Cell Distribution Width 13.9 % (11.5-14.5)
[2021-01-04 05:23] LABS: Alanine Aminotransferase 71 U/L (4-50); Albumin Level 3.3 g/dL (3.5-5.1); Alkaline Phosphatase 29 U/L (38-126); Anion Gap 3 mmol/L (8-16); Aspartate Amino Transferase 35 U/L (17-59); Bilirubin,Total 0.4 mg/dL (0.2-1.3); Blood Urea Nitrogen 15 mg/dL (9-20); Calcium 8.9 mg/dL (8.4-10.2); Carbon Dioxide 31 mmol/L (22-30); Chloride 102 mmol/L (98-107); Estimated CRCL calculation 72 ml/min; Estimated Glomerular Filt Rate > 60; Glucose 97 mg/dL (75-110); Potassium 4.3 mmol/L (3.4-5.0); Sodium 136 mmol/L (137-145)
[2021-01-04 05:50] VITALS: BP 118/71; PULSE 64; RESP 16; TEMP 35.7; O2SAT 96
[2021-01-04 06:52] LABS: Glucose Point of Care 97 mg/dl (65-105)
[2021-01-04 08:25] VITALS: BP 114/63; PULSE 83; O2SAT 98
--- NOTE | 2021-01-04 08:45 | WPDNEURORHBP ---
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 Patient is followed by Dr. Clint Madrigal and Dr. Cam Landa for his neurological disorders. Patient presents to [facility] with 6 months progression of shuffling gait and rigidity. Patient had a ARCELIA scan on 11/12/2020 which showed asymmetric abnormal mild decreased activity in the right sided caudate nucleus and putamen. Patient has had a differential diagnosis of parkinsonism, Parkinson's disease, autoimmune induced parkinsonism, NPH and drug-induced parkinsonism. Diagnosis is still elusive.. Patient was placed on IV methylprednisolone with fair improvements. Patient had a Marinelli score of 3/56 and then improved to 9/56 after large volume lumbar puncture. NPH is still not been ruled out. Workup at [facility]: lumbar puncture was essentially benign, autoimmune negative, id negative for COVID, UA with no evidence of UTI, nor RPR no HIV. Toxic metabolic workup was also benign. MRI of the CT demonstrated subacute L1 compression fracture. Please see discharge summary for further details. Treatment at [facility]: patient was placed on a trial of Sinemet without adequate response. Patient was given large volume LP for normal pressure hydrocephalus without very significant functional gains. Abilify was discontinued with thoughts that this may be the cause of the rigidity. Patient was placed on IV methylprednisone with some mild improvements and will continue for 4 doses every Wednesday for presumed improvements. Recommendations are to start NPH eval only after 6 months once Abilify has been weaned from his system. 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 Patient is to follow up with neurologist Dr. Madrigal and Dr. Ansari Patient's bipolar anxiety and depression worsened during his hospital stay. Lexapro was increased to 20 mg daily. Outpatient psychiatrist was notified of this change. Outpatient psychiatrist also recommends increasing Depakote to 750 mg b.i.d. for anxiety and bipolar disorder due to low valproic acid level of 39. Will defer that to outpatient setting so that it does not affect the steroid trial. Outpatient psychiatrist is Dr. Cam Kearns. Patient obstructive sleep apnea is treated by CPAP but patient declines its use. Patient's insomnia is treated with trazodone 100 mg at bedtime. Patient's hemoglobin A1c was 5.9 patient and is on metformin 500 mg b.i.d.. His hypertension is treated with his home medicine of losartan 25 mg daily. Patient's hyperlipidemia is treated with his home medication of atarvastatin 40 mg daily. Patient did demonstrate some hematuria felt to be due to Hung trauma. Patient has remained incontinent and a condom cath unfortunately does not stay in place. His BPH is treated with his home medication of Flomax 0.4 mg daily. Patient is now being admitted to acute rehab to provide it overall improvement of his mobility back Therapy was initiated at the acute care facility and the patient transferred to us from [facility] on 12/27/2020 12/31/[address] Kearns regarding depakote dosing. Dtr relates that Dr. Kearns would like the depakote to be decreased to 250mg BID. Verification by DR Kearns with the potential to discontinue all together. 01/02/21 Blood pressure at times run low. Blood pressure can be 90s over 50s. Will decrease Cozaar from 25 mg to 12.5 mg daily. blood sugars remain 80s to 90s on Glucophage 500 mg b.i.d.. Patient voices no new complaints but remains pessimistic. 01/03/21
[2021-01-04 09:02] LABS: Glucose Point of Care 121 mg/dl (65-105)
[2021-01-04] MEDS: LIDOCAINE 5% PATCH 3 PATCH TRANSDERM (09:31)
[2021-01-04] MEDS: ESCITALOPRAM OXALATE 10 MG TABLET 20 MG PO (09:32)
[2021-01-04] MEDS: metFORMIN HCL 500 MG TABLET PO ×2 (09:32→16:45)
[2021-01-04] MEDS: LOSARTAN POTASSIUM 12.5 MG TABLET PO (09:32)
[2021-01-04] MEDS: ASPIRIN 81 MG CHEWABLE TABLET PO (09:32)
[2021-01-04] MEDS: LORATADINE 10 MG TABLET PO (09:33)
[2021-01-04] MEDS: PANTOPRAZOLE 40 MG TABLET PO (09:33)
[2021-01-04] MEDS: DIVALPROEX SODIUM DR 250 MG TABEC PO ×2 (09:33→16:45)
[2021-01-04] MEDS: polyethylene glycoL 3350 17 GM POWD.PACK PO ×2 (09:33→21:00)
[2021-01-04] MEDS: ENOXAPARIN 40 MG/0.4 ML SYRINGE SUB-Q (09:33)
[2021-01-04] MEDS: CYCLOBENZAPRINE HCL 5 MG TABLET PO ×3 (09:41→20:14)
[2021-01-04] MEDS: ACETAMINOPHEN 325 MG TABLET 650 MG PO ×2 (09:41→16:45)
[2021-01-04 14:00] VITALS: BP 102/62; PULSE 70; RESP 16; TEMP 36.1; O2SAT 98
[2021-01-04 17:08] LABS: Glucose Point of Care 79 mg/dl (65-105)
[2021-01-04] MEDS: HYDROcodone/acetaminophen (*CRX) 5-325 MG TABLET 1 TAB PO (18:22)
[2021-01-04 20:00] VITALS: PULSE 59; RESP 20; O2SAT 91
[2021-01-04] MEDS: CYANOCOBALAMIN 1,000 MCG TABLET 2000 MCG PO (21:00)
[2021-01-04] MEDS: GABAPENTIN 100 MG CAPSULE PO (21:00)
[2021-01-04] MEDS: FOLIC ACID 1 MG TABLET PO (21:00)
[2021-01-04] MEDS: TAMSULOSIN HCL 0.4 MG CAPSULE PO (21:00)
[2021-01-04] MEDS: traZODone HCL 50 MG TABLET 100 MG PO (21:00)
[2021-01-04 21:54] LABS: Glucose Point of Care 114 mg/dl (65-105)
[2021-01-04 22:00] VITALS: BP 109/60; PULSE 59; RESP 20; TEMP 36.1; O2SAT 91
[2021-01-05 06:00] VITALS: BP 116/69; PULSE 67; RESP 16; TEMP 36.4; O2SAT 98
[2021-01-05 06:12] LABS: Glucose Point of Care 89 mg/dl (65-105)
[2021-01-05] MEDS: ENOXAPARIN 40 MG/0.4 ML SYRINGE SUB-Q (09:07)
[2021-01-05] MEDS: ESCITALOPRAM OXALATE 10 MG TABLET 20 MG PO (09:07)
[2021-01-05] MEDS: PANTOPRAZOLE 40 MG TABLET PO (09:08)
[2021-01-05] MEDS: ASPIRIN 81 MG CHEWABLE TABLET PO (09:08)
[2021-01-05] MEDS: LIDOCAINE 5% PATCH 3 PATCH TRANSDERM (09:08)
[2021-01-05] MEDS: polyethylene glycoL 3350 17 GM POWD.PACK PO ×2 (09:08→21:55)
[2021-01-05] MEDS: DIVALPROEX SODIUM DR 250 MG TABEC PO ×2 (09:08→18:19)
[2021-01-05] MEDS: LOSARTAN POTASSIUM 12.5 MG TABLET PO (09:08)
[2021-01-05] MEDS: GABAPENTIN 100 MG CAPSULE PO ×4 (09:08→21:53)
[2021-01-05] MEDS: metFORMIN HCL 500 MG TABLET PO ×2 (09:08→18:18)
--- NOTE | 2021-01-05 09:15 | WPDNEURORHBP ---
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 Patient is followed by Dr. Clint Madrigal and Dr. Cam Landa for his neurological disorders. Patient presents to [facility] with 6 months progression of shuffling gait and rigidity. Patient had a ARCELIA scan on 11/12/2020 which showed asymmetric abnormal mild decreased activity in the right sided caudate nucleus and putamen. Patient has had a differential diagnosis of parkinsonism, Parkinson's disease, autoimmune induced parkinsonism, NPH and drug-induced parkinsonism. Diagnosis is still elusive.. Patient was placed on IV methylprednisolone with fair improvements. Patient had a Marinelli score of 3/56 and then improved to 9/56 after large volume lumbar puncture. NPH is still not been ruled out. Workup at [facility]: lumbar puncture was essentially benign, autoimmune negative, id negative for COVID, UA with no evidence of UTI, nor RPR no HIV. Toxic metabolic workup was also benign. MRI of the CT demonstrated subacute L1 compression fracture. Please see discharge summary for further details. Treatment at [facility]: patient was placed on a trial of Sinemet without adequate response. Patient was given large volume LP for normal pressure hydrocephalus without very significant functional gains. Abilify was discontinued with thoughts that this may be the cause of the rigidity. Patient was placed on IV methylprednisone with some mild improvements and will continue for 4 doses every Wednesday for presumed improvements. Recommendations are to start NPH eval only after 6 months once Abilify has been weaned from his system. 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 Patient is to follow up with neurologist Dr. Madrigal and Dr. Ansari Patient's bipolar anxiety and depression worsened during his hospital stay. Lexapro was increased to 20 mg daily. Outpatient psychiatrist was notified of this change. Outpatient psychiatrist also recommends increasing Depakote to 750 mg b.i.d. for anxiety and bipolar disorder due to low valproic acid level of 39. Will defer that to outpatient setting so that it does not affect the steroid trial. Outpatient psychiatrist is Dr. Cam Kearns. Patient obstructive sleep apnea is treated by CPAP but patient declines its use. Patient's insomnia is treated with trazodone 100 mg at bedtime. Patient's hemoglobin A1c was 5.9 patient and is on metformin 500 mg b.i.d.. His hypertension is treated with his home medicine of losartan 25 mg daily. Patient's hyperlipidemia is treated with his home medication of atarvastatin 40 mg daily. Patient did demonstrate some hematuria felt to be due to Hung trauma. Patient has remained incontinent and a condom cath unfortunately does not stay in place. His BPH is treated with his home medication of Flomax 0.4 mg daily. Patient is now being admitted to acute rehab to provide it overall improvement of his mobility back Therapy was initiated at the acute care facility and the patient transferred to us from [facility] on 12/27/2020 12/31/[address] Kearns regarding depakote dosing. Dtr relates that Dr. Kearns would like the depakote to be decreased to 250mg BID. Verification by DR Kearns with the potential to discontinue all together. 01/02/21 Blood pressure at times run low. Blood pressure can be 90s over 50s. Will decrease Cozaar from 25 mg to 12.5 mg daily. blood sugars remain 80s to 90s on Glucophage 500 mg b.i.d.. Patient voices no new complaints but remains pessimistic. 01/03/21
[2021-01-05] MEDS: ACETAMINOPHEN 325 MG TABLET 650 MG PO (09:42)
[2021-01-05] MEDS: CYCLOBENZAPRINE HCL 5 MG TABLET PO (09:43)
[2021-01-05] MEDS: ACYCLOVIR 400 MG TABLET 800 MG PO ×4 (12:28→21:53)
[2021-01-05 14:00] VITALS: BP 95/58; PULSE 89; RESP 16; TEMP 36.6; O2SAT 97
[2021-01-05 17:45] LABS: Glucose Point of Care 102 mg/dl (65-105)
[2021-01-05] MEDS: CYANOCOBALAMIN 1,000 MCG TABLET 2000 MCG PO (21:52)
[2021-01-05] MEDS: traZODone HCL 50 MG TABLET 100 MG PO (21:53)
[2021-01-05] MEDS: FOLIC ACID 1 MG TABLET PO (21:54)
[2021-01-05] MEDS: TAMSULOSIN HCL 0.4 MG CAPSULE PO (21:55)
[2021-01-05 22:00] VITALS: BP 109/66; PULSE 108; RESP 16; TEMP 36.1; O2SAT 97
[2021-01-06 06:00] VITALS: BP 98/60; PULSE 83; RESP 18; TEMP 36.1; O2SAT 97
[2021-01-06 06:19] LABS: Glucose Point of Care 119 mg/dl (65-105)
[2021-01-06] MEDS: LIDOCAINE 5% PATCH 3 PATCH TRANSDERM (09:24)
[2021-01-06] MEDS: ESCITALOPRAM OXALATE 10 MG TABLET 20 MG PO (09:40)
[2021-01-06] MEDS: ASPIRIN 81 MG CHEWABLE TABLET PO (09:40)
[2021-01-06] MEDS: DIVALPROEX SODIUM DR 250 MG TABEC PO ×2 (09:40→17:28)
[2021-01-06] MEDS: metFORMIN HCL 500 MG TABLET PO ×2 (09:40→17:28)
[2021-01-06] MEDS: ENOXAPARIN 40 MG/0.4 ML SYRINGE SUB-Q (09:40)
[2021-01-06] MEDS: ACYCLOVIR 400 MG TABLET 800 MG PO ×5 (09:40→20:12)
[2021-01-06] MEDS: PANTOPRAZOLE 40 MG TABLET PO (09:41)
[2021-01-06] MEDS: GABAPENTIN 100 MG CAPSULE PO ×4 (09:41→20:14)
[2021-01-06] MEDS: methylPREDNISolone SOD SUCC 1,000 MG in DEXTROSE 5% 100 ML 200 MG IVPB (09:42)
[2021-01-06] MEDS: ACYCLOVIR 5% OINTMENT 15 GM TUBE 1 APPLIC TOPICAL ×4 (11:59→20:11)
[2021-01-06 14:00] VITALS: BP 114/66; PULSE 85; RESP 18; TEMP 35.9; O2SAT 96
[2021-01-06 17:02] LABS: Glucose Point of Care 213 mg/dl (65-105)
[2021-01-06] MEDS: HYDROcodone/acetaminophen (*CRX) 5-325 MG TABLET 1 TAB PO (20:10)
[2021-01-06] MEDS: CYCLOBENZAPRINE HCL 5 MG TABLET PO (20:10)
[2021-01-06] MEDS: CYANOCOBALAMIN 1,000 MCG TABLET 2000 MCG PO (20:12)
[2021-01-06] MEDS: FOLIC ACID 1 MG TABLET PO (20:13)
[2021-01-06] MEDS: polyethylene glycoL 3350 17 GM POWD.PACK PO (20:14)
[2021-01-06] MEDS: TAMSULOSIN HCL 0.4 MG CAPSULE PO (20:14)
[2021-01-06] MEDS: traZODone HCL 50 MG TABLET 100 MG PO (20:15)
[2021-01-06 21:50] VITALS: BP 105/67; PULSE 87; RESP 20; TEMP 36; O2SAT 95
[2021-01-06 23:16] LABS: Glucose Point of Care 215 mg/dl (65-105)
[2021-01-07 05:57] VITALS: BP 114/66; PULSE 75; RESP 18; TEMP 35.9; O2SAT 97
[2021-01-07 06:00] LABS: Alanine Aminotransferase 69 U/L (4-50); Albumin Level 3.3 g/dL (3.5-5.1); Alkaline Phosphatase 41 U/L (38-126); Anion Gap 8 mmol/L (8-16); Aspartate Amino Transferase 30 U/L (17-59); Bilirubin,Total 0.4 mg/dL (0.2-1.3); Blood Urea Nitrogen 16 mg/dL (9-20); Carbon Dioxide 25 mmol/L (22-30); Chloride 101 mmol/L (98-107); Estimated CRCL calculation 87 ml/min; Estimated Glomerular Filt Rate > 60; Glucose 140 mg/dL (75-110); Potassium 4.5 mmol/L (3.4-5.0); Sodium 134 mmol/L (137-145)
[2021-01-07 06:48] LABS: Glucose Point of Care 147 mg/dl (65-105)
[2021-01-07] MEDS: metFORMIN HCL 500 MG TABLET PO ×2 (08:41→17:32)
[2021-01-07] MEDS: ACYCLOVIR 5% OINTMENT 15 GM TUBE 1 APPLIC TOPICAL ×4 (08:41→19:55)
[2021-01-07] MEDS: GABAPENTIN 100 MG CAPSULE PO ×4 (08:41→21:40)
[2021-01-07] MEDS: PANTOPRAZOLE 40 MG TABLET PO (08:41)
[2021-01-07] MEDS: ACYCLOVIR 400 MG TABLET 800 MG PO ×4 (08:41→19:56)
[2021-01-07] MEDS: ESCITALOPRAM OXALATE 10 MG TABLET 20 MG PO (08:41)
[2021-01-07] MEDS: ASPIRIN 81 MG CHEWABLE TABLET PO (08:41)
[2021-01-07] MEDS: LOSARTAN POTASSIUM 12.5 MG TABLET PO (08:41)
[2021-01-07] MEDS: polyethylene glycoL 3350 17 GM POWD.PACK PO ×2 (08:42→21:40)
[2021-01-07] MEDS: ENOXAPARIN 40 MG/0.4 ML SYRINGE SUB-Q (08:42)
[2021-01-07] MEDS: DIVALPROEX SODIUM DR 250 MG TABEC PO ×2 (08:42→17:32)
[2021-01-07] MEDS: LIDOCAINE 5% PATCH 3 PATCH TRANSDERM (08:42)
[2021-01-07] MEDS: HYDROcodone/acetaminophen (*CRX) 5-325 MG TABLET 1 TAB PO (09:58)
--- NOTE | 2021-01-07 11:47 | WPDNEURORHBP ---
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 Patient is followed by Dr. Clint Madrigal and Dr. Cam Landa for his neurological disorders. Patient presents to [facility] with 6 months progression of shuffling gait and rigidity. Patient had a ARCELIA scan on 11/12/2020 which showed asymmetric abnormal mild decreased activity in the right sided caudate nucleus and putamen. Patient has had a differential diagnosis of parkinsonism, Parkinson's disease, autoimmune induced parkinsonism, NPH and drug-induced parkinsonism. Diagnosis is still elusive.. Patient was placed on IV methylprednisolone with fair improvements. Patient had a Marinelli score of 3/56 and then improved to 9/56 after large volume lumbar puncture. NPH is still not been ruled out. Workup at [facility]: lumbar puncture was essentially benign, autoimmune negative, id negative for COVID, UA with no evidence of UTI, nor RPR no HIV. Toxic metabolic workup was also benign. MRI of the CT demonstrated subacute L1 compression fracture. Please see discharge summary for further details. Treatment at [facility]: patient was placed on a trial of Sinemet without adequate response. Patient was given large volume LP for normal pressure hydrocephalus without very significant functional gains. Abilify was discontinued with thoughts that this may be the cause of the rigidity. Patient was placed on IV methylprednisone with some mild improvements and will continue for 4 doses every Wednesday for presumed improvements. Recommendations are to start NPH eval only after 6 months once Abilify has been weaned from his system. 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 Patient is to follow up with neurologist Dr. Madrigal and Dr. Ansari Patient's bipolar anxiety and depression worsened during his hospital stay. Lexapro was increased to 20 mg daily. Outpatient psychiatrist was notified of this change. Outpatient psychiatrist also recommends increasing Depakote to 750 mg b.i.d. for anxiety and bipolar disorder due to low valproic acid level of 39. Will defer that to outpatient setting so that it does not affect the steroid trial. Outpatient psychiatrist is Dr. Cam Kearns. Patient obstructive sleep apnea is treated by CPAP but patient declines its use. Patient's insomnia is treated with trazodone 100 mg at bedtime. Patient's hemoglobin A1c was 5.9 patient and is on metformin 500 mg b.i.d.. His hypertension is treated with his home medicine of losartan 25 mg daily. Patient's hyperlipidemia is treated with his home medication of atarvastatin 40 mg daily. Patient did demonstrate some hematuria felt to be due to Hung trauma. Patient has remained incontinent and a condom cath unfortunately does not stay in place. His BPH is treated with his home medication of Flomax 0.4 mg daily. Patient is now being admitted to acute rehab to provide it overall improvement of his mobility back Therapy was initiated at the acute care facility and the patient transferred to us from [facility] on 12/27/2020 12/31/[address] Kearns regarding depakote dosing. Dtr relates that Dr. Kearns would like the depakote to be decreased to 250mg BID. Verification by DR Kearns with the potential to discontinue all together. 01/02/21 Blood pressure at times run low. Blood pressure can be 90s over 50s. Will decrease Cozaar from 25 mg to 12.5 mg daily. blood sugars remain 80s to 90s on Glucophage 500 mg b.i.d.. Patient voices no new complaints but remains pessimistic. 01/03/21
[2021-01-07 14:00] VITALS: BP 114/56; PULSE 69; RESP 14; TEMP 35.7; O2SAT 97
[2021-01-07 16:55] LABS: Glucose Point of Care 90 mg/dl (65-105)
[2021-01-07] MEDS: ACETAMINOPHEN 325 MG TABLET 650 MG PO (19:57)
[2021-01-07] MEDS: CYANOCOBALAMIN 1,000 MCG TABLET 2000 MCG PO (21:39)
[2021-01-07] MEDS: FOLIC ACID 1 MG TABLET PO (21:40)
[2021-01-07] MEDS: TAMSULOSIN HCL 0.4 MG CAPSULE PO (21:41)
[2021-01-07] MEDS: traZODone HCL 50 MG TABLET 100 MG PO (21:42)
[2021-01-07] MEDS: CYCLOBENZAPRINE HCL 5 MG TABLET PO (21:43)
[2021-01-07 21:57] VITALS: BP 104/54; PULSE 76; RESP 20; TEMP 36.1; O2SAT 96
[2021-01-08 04:53] LABS: Add Urine Microscopic? YES; Appearance Urine Clear (Clear); Bilirubin Urine Negative (Negative); Blood Urine Negative (Negative); Color Urine Yellow (Yellow); Glucose Urine UA Negative (Negative); Ketones Urine Negative (Negative); Leukocyte Esterase Ur Negative LEU/UL (Negative); Mucus Urine Rare /lpf; Nitrate Urine Negative (Negative); Protein Urine Negative (Negative); Specific Grav Ur 1.013 (1.001-1.035); WBC Urine 0-3 /hpf
[2021-01-08 06:00] VITALS: BP 117/68; PULSE 63; RESP 16; TEMP 35.9; O2SAT 98
[2021-01-08 08:00] VITALS: PULSE 63; RESP 16; O2SAT 98
[2021-01-08] MEDS: ESCITALOPRAM OXALATE 10 MG TABLET 20 MG PO (08:23)
[2021-01-08] MEDS: metFORMIN HCL 500 MG TABLET PO ×2 (08:23→17:15)
[2021-01-08] MEDS: GABAPENTIN 100 MG CAPSULE PO ×4 (08:24→21:11)
[2021-01-08] MEDS: LOSARTAN POTASSIUM 12.5 MG TABLET PO (08:24)
[2021-01-08] MEDS: ACYCLOVIR 5% OINTMENT 15 GM TUBE 1 APPLIC TOPICAL ×6 (08:25→21:11)
[2021-01-08] MEDS: ASPIRIN 81 MG CHEWABLE TABLET PO (08:25)
[2021-01-08] MEDS: ACYCLOVIR 400 MG TABLET 800 MG PO ×6 (08:25→21:10)
[2021-01-08] MEDS: ENOXAPARIN 40 MG/0.4 ML SYRINGE SUB-Q (08:26)
[2021-01-08] MEDS: DIVALPROEX SODIUM DR 250 MG TABEC PO ×2 (08:26→18:00)
[2021-01-08] MEDS: LIDOCAINE 5% PATCH 3 PATCH TRANSDERM (08:26)
[2021-01-08] MEDS: PANTOPRAZOLE 40 MG TABLET PO (08:26)
[2021-01-08] MEDS: polyethylene glycoL 3350 17 GM POWD.PACK PO (08:26)
[2021-01-08] MEDS: HYDROcodone/acetaminophen (*CRX) 5-325 MG TABLET 1 TAB PO ×2 (08:29→13:41)
--- NOTE | 2021-01-08 11:36 | WPDNEURORHBP ---
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 Patient is followed by Dr. Clint Madrigal and Dr. Cam Landa for his neurological disorders. Patient presents to [facility] with 6 months progression of shuffling gait and rigidity. Patient had a ARCELIA scan on 11/12/2020 which showed asymmetric abnormal mild decreased activity in the right sided caudate nucleus and putamen. Patient has had a differential diagnosis of parkinsonism, Parkinson's disease, autoimmune induced parkinsonism, NPH and drug-induced parkinsonism. Diagnosis is still elusive.. Patient was placed on IV methylprednisolone with fair improvements. Patient had a Marinelli score of 3/56 and then improved to 9/56 after large volume lumbar puncture. NPH is still not been ruled out. Workup at [facility]: lumbar puncture was essentially benign, autoimmune negative, id negative for COVID, UA with no evidence of UTI, nor RPR no HIV. Toxic metabolic workup was also benign. MRI of the CT demonstrated subacute L1 compression fracture. Please see discharge summary for further details. Treatment at [facility]: patient was placed on a trial of Sinemet without adequate response. Patient was given large volume LP for normal pressure hydrocephalus without very significant functional gains. Abilify was discontinued with thoughts that this may be the cause of the rigidity. Patient was placed on IV methylprednisone with some mild improvements and will continue for 4 doses every Wednesday for presumed improvements. Recommendations are to start NPH eval only after 6 months once Abilify has been weaned from his system. 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 Patient is to follow up with neurologist Dr. Madrigal and Dr. Ansari Patient's bipolar anxiety and depression worsened during his hospital stay. Lexapro was increased to 20 mg daily. Outpatient psychiatrist was notified of this change. Outpatient psychiatrist also recommends increasing Depakote to 750 mg b.i.d. for anxiety and bipolar disorder due to low valproic acid level of 39. Will defer that to outpatient setting so that it does not affect the steroid trial. Outpatient psychiatrist is Dr. Cam Kearns. Patient obstructive sleep apnea is treated by CPAP but patient declines its use. Patient's insomnia is treated with trazodone 100 mg at bedtime. Patient's hemoglobin A1c was 5.9 patient and is on metformin 500 mg b.i.d.. His hypertension is treated with his home medicine of losartan 25 mg daily. Patient's hyperlipidemia is treated with his home medication of atarvastatin 40 mg daily. Patient did demonstrate some hematuria felt to be due to Hung trauma. Patient has remained incontinent and a condom cath unfortunately does not stay in place. His BPH is treated with his home medication of Flomax 0.4 mg daily. Patient is now being admitted to acute rehab to provide it overall improvement of his mobility back Therapy was initiated at the acute care facility and the patient transferred to us from [facility] on 12/27/2020 12/31/[address] Kearns regarding depakote dosing. Dtr relates that Dr. Kearns would like the depakote to be decreased to 250mg BID. Verification by DR Kearns with the potential to discontinue all together. 01/02/21 Blood pressure at times run low. Blood pressure can be 90s over 50s. Will decrease Cozaar from 25 mg to 12.5 mg daily. blood sugars remain 80s to 90s on Glucophage 500 mg b.i.d.. Patient voices no new complaints but remains pessimistic. 01/03/21
[2021-01-08 14:00] VITALS: BP 110/68; PULSE 76; RESP 18; TEMP 36.3; O2SAT 98
[2021-01-08 16:37] LABS: Glucose Point of Care 111 mg/dl (65-105)
[2021-01-08 20:55] VITALS: BP 109/59; PULSE 71; RESP 16; TEMP 35.9; O2SAT 98
[2021-01-08] MEDS: ACETAMINOPHEN 325 MG TABLET 650 MG PO (21:08)
[2021-01-08] MEDS: TAMSULOSIN HCL 0.4 MG CAPSULE PO (21:10)
[2021-01-08] MEDS: traZODone HCL 50 MG TABLET 100 MG PO (21:11)
[2021-01-08] MEDS: FOLIC ACID 1 MG TABLET PO (21:11)
[2021-01-08] MEDS: CYANOCOBALAMIN 1,000 MCG TABLET 2000 MCG PO (21:11)
[2021-01-09 04:39] LABS: Hematocrit 36.8 % (42.0-52.0); Hemoglobin 11.9 g/dL (14.0-18.0); Mean Corpuscular HGB Conc 32.3 g/dl (32-36); Mean Corpuscular Hemoglobin 29.6 pg (26-34); Mean Corpuscular Volume 91.5 fl (80-100); Platelet Count Result 117 k/mm3 (150-375); Red Blood Count 4.02 M/mm3 (4.6-6.20); Red Cell Distribution Width 14.2 % (11.5-14.5); White Blood Count 4.4 K/mm3 (4.5-10.0)
[2021-01-09 04:53] LABS: Alanine Aminotransferase 53 U/L (4-50); Albumin Level 3.1 g/dL (3.5-5.1); Alkaline Phosphatase 36 U/L (38-126); Anion Gap 6 mmol/L (8-16); Aspartate Amino Transferase 21 U/L (17-59); Bilirubin,Total 0.2 mg/dL (0.2-1.3); Blood Urea Nitrogen 18 mg/dL (9-20); Calcium 8.7 mg/dL (8.4-10.2); Carbon Dioxide 28 mmol/L (22-30); Chloride 103 mmol/L (98-107); Estimated CRCL calculation 79 ml/min; Estimated Glomerular Filt Rate > 60; Glucose 99 mg/dL (75-110); Potassium 3.9 mmol/L (3.4-5.0); Sodium 137 mmol/L (137-145)
[2021-01-09 06:00] VITALS: BP 118/58; PULSE 65; RESP 16; TEMP 35.9; O2SAT 98
[2021-01-09 06:22] LABS: Glucose Point of Care 92 mg/dl (65-105)
[2021-01-09] MEDS: ACYCLOVIR 400 MG TABLET 800 MG PO ×5 (08:58→21:47)
[2021-01-09] MEDS: polyethylene glycoL 3350 17 GM POWD.PACK PO ×2 (08:58→21:48)
[2021-01-09] MEDS: LIDOCAINE 5% PATCH 3 PATCH TRANSDERM (08:59)
[2021-01-09] MEDS: LOSARTAN POTASSIUM 12.5 MG TABLET PO (08:59)
[2021-01-09] MEDS: PANTOPRAZOLE 40 MG TABLET PO (08:59)
[2021-01-09] MEDS: ESCITALOPRAM OXALATE 10 MG TABLET 20 MG PO (08:59)
[2021-01-09] MEDS: DIVALPROEX SODIUM DR 250 MG TABEC PO ×2 (09:00→18:11)
[2021-01-09] MEDS: ENOXAPARIN 40 MG/0.4 ML SYRINGE SUB-Q (09:00)
[2021-01-09] MEDS: GABAPENTIN 100 MG CAPSULE PO ×4 (09:00→21:47)
[2021-01-09] MEDS: ACYCLOVIR 5% OINTMENT 15 GM TUBE 1 APPLIC TOPICAL ×5 (09:00→21:49)
[2021-01-09] MEDS: metFORMIN HCL 500 MG TABLET PO ×2 (09:00→18:11)
[2021-01-09] MEDS: ASPIRIN 81 MG CHEWABLE TABLET PO (09:00)
--- NOTE | 2021-01-09 10:28 | WPDNEURORHBP ---
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 Patient is followed by Dr. Clint Madrigal and Dr. Cam Landa for his neurological disorders. Patient presents to [facility] with 6 months progression of shuffling gait and rigidity. Patient had a ARCELIA scan on 11/12/2020 which showed asymmetric abnormal mild decreased activity in the right sided caudate nucleus and putamen. Patient has had a differential diagnosis of parkinsonism, Parkinson's disease, autoimmune induced parkinsonism, NPH and drug-induced parkinsonism. Diagnosis is still elusive.. Patient was placed on IV methylprednisolone with fair improvements. Patient had a Marinelli score of 3/56 and then improved to 9/56 after large volume lumbar puncture. NPH is still not been ruled out. Workup at [facility]: lumbar puncture was essentially benign, autoimmune negative, id negative for COVID, UA with no evidence of UTI, nor RPR no HIV. Toxic metabolic workup was also benign. MRI of the CT demonstrated subacute L1 compression fracture. Please see discharge summary for further details. Treatment at [facility]: patient was placed on a trial of Sinemet without adequate response. Patient was given large volume LP for normal pressure hydrocephalus without very significant functional gains. Abilify was discontinued with thoughts that this may be the cause of the rigidity. Patient was placed on IV methylprednisone with some mild improvements and will continue for 4 doses every Wednesday for presumed improvements. Recommendations are to start NPH eval only after 6 months once Abilify has been weaned from his system. 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 Patient is to follow up with neurologist Dr. Madrigal and Dr. Ansari Patient's bipolar anxiety and depression worsened during his hospital stay. Lexapro was increased to 20 mg daily. Outpatient psychiatrist was notified of this change. Outpatient psychiatrist also recommends increasing Depakote to 750 mg b.i.d. for anxiety and bipolar disorder due to low valproic acid level of 39. Will defer that to outpatient setting so that it does not affect the steroid trial. Outpatient psychiatrist is Dr. Cam Kearns. Patient obstructive sleep apnea is treated by CPAP but patient declines its use. Patient's insomnia is treated with trazodone 100 mg at bedtime. Patient's hemoglobin A1c was 5.9 patient and is on metformin 500 mg b.i.d.. His hypertension is treated with his home medicine of losartan 25 mg daily. Patient's hyperlipidemia is treated with his home medication of atarvastatin 40 mg daily. Patient did demonstrate some hematuria felt to be due to Hung trauma. Patient has remained incontinent and a condom cath unfortunately does not stay in place. His BPH is treated with his home medication of Flomax 0.4 mg daily. Patient is now being admitted to acute rehab to provide it overall improvement of his mobility back Therapy was initiated at the acute care facility and the patient transferred to us from [facility] on 12/27/2020 12/31/[address] Kearns regarding depakote dosing. Dtr relates that Dr. Kearns would like the depakote to be decreased to 250mg BID. Verification by DR Kearns with the potential to discontinue all together. 01/02/21 Blood pressure at times run low. Blood pressure can be 90s over 50s. Will decrease Cozaar from 25 mg to 12.5 mg daily. blood sugars remain 80s to 90s on Glucophage 500 mg b.i.d.. Patient voices no new complaints but remains pessimistic. 01/03/21
[2021-01-09] MEDS: HYDROcodone/acetaminophen (*CRX) 5-325 MG TABLET 1 TAB PO (10:39)
[2021-01-09] MEDS: CYCLOBENZAPRINE HCL 5 MG TABLET PO (10:39)
[2021-01-09] MEDS: ALPRAZolam (*CRX) 0.25 MG TABLET 0.125 MG PO (10:58)
[2021-01-09 14:00] VITALS: BP 107/54; PULSE 80; RESP 20; TEMP 36.1; O2SAT 97
[2021-01-09 16:42] LABS: Glucose Point of Care 103 mg/dl (65-105)
[2021-01-09] MEDS: FOLIC ACID 1 MG TABLET PO (21:47)
[2021-01-09] MEDS: CYANOCOBALAMIN 1,000 MCG TABLET 2000 MCG PO (21:47)
[2021-01-09] MEDS: traZODone HCL 50 MG TABLET 100 MG PO (21:48)
[2021-01-09] MEDS: TAMSULOSIN HCL 0.4 MG CAPSULE PO (21:49)
[2021-01-09 22:00] VITALS: BP 118/63; PULSE 74; RESP 20; TEMP 36.1; O2SAT 99
[2021-01-10 06:00] VITALS: BP 117/66; PULSE 71; RESP 21; TEMP 36.1; O2SAT 97
[2021-01-10 06:23] LABS: Glucose Point of Care 101 mg/dl (65-105)
[2021-01-10] MEDS: HYDROcodone/acetaminophen (*CRX) 5-325 MG TABLET 1 TAB PO (08:33)
[2021-01-10] MEDS: ACYCLOVIR 400 MG TABLET 800 MG PO (09:10)
[2021-01-10] MEDS: ESCITALOPRAM OXALATE 10 MG TABLET 20 MG PO (09:10)
[2021-01-10] MEDS: LIDOCAINE 5% PATCH 3 PATCH TRANSDERM (09:10)
[2021-01-10] MEDS: metFORMIN HCL 500 MG TABLET PO (09:10)
[2021-01-10] MEDS: ASPIRIN 81 MG CHEWABLE TABLET PO (09:11)
[2021-01-10] MEDS: ACYCLOVIR 5% OINTMENT 15 GM TUBE 1 APPLIC TOPICAL (09:11)
[2021-01-10] MEDS: ENOXAPARIN 40 MG/0.4 ML SYRINGE SUB-Q (09:12)
[2021-01-10] MEDS: DIVALPROEX SODIUM DR 250 MG TABEC PO (09:12)
[2021-01-10] MEDS: GABAPENTIN 100 MG CAPSULE PO (09:12)
[2021-01-10] MEDS: LOSARTAN POTASSIUM 12.5 MG TABLET PO (09:12)
[2021-01-10] MEDS: PANTOPRAZOLE 40 MG TABLET PO (09:12)
[2021-01-10 10:08] LABS: EDCOVIDSCREEN Negative (Negative)
[2021-01-10] MEDS: ALPRAZolam (*CRX) 0.25 MG TABLET 0.125 MG PO (10:31)
--- NOTE | 2021-01-10 16:31 | PM.DS ---
DS: Admitting Diagnosis Admitting Diagnosis Admitting Diagnosis: AUTOIMMUNE PARKINSON'S DS: Discharge Diagnosis Discharge Diagnosis (1) Parkinsonism: Code(s): G20 - Parkinson's disease Status: Acute Assessment and Plan: IV Methylprednisolone weekly. Patient has demonstrated improvement. Patient completed 2out of 4 courses (2) Type 2 diabetes mellitus: Code(s): E11.9 - Type 2 diabetes mellitus without complications Status: Acute Assessment and Plan: Meformin, (3) Urinary incontinence: Code(s): R32 - Unspecified urinary incontinence Status: Acute Assessment and Plan: Patient has been incontinent of urine but has voiced needs for urinal more consistently. Continue with bladder retraining. (4) Bipolar disorder: Code(s): F31.9 - Bipolar disorder, unspecified Status: Acute Assessment and Plan: Depakote 500 mg in the morning with 750 mg at night. Consideration for outpatient adjustment of 750 mg b.i.d per chart. This will not be attempted during rehab as not to affect the methylprednisolone treatment However, family states that patient has been somnolent throughout his [facility] stay. Luci Hamilton [phone] K[address]ns[address] Dr Kearns would like dose adjusted to 250 mg BID. I have decreased Lenze to 250mg BID. Dr Kearns mentioned that patient may not require Depakote. Defer to Dr. Kearns regarding Xanax. I have started low dose Xanax for trial to see if this is of benefit. (5) Depression: Code(s): F32.9 - Major depressive disorder, single episode, unspecified Status: Acute Assessment and Plan: Depakote and Lexapro (6) Anxiety: Code(s): F41.9 - Anxiety disorder, unspecified Status: Acute Assessment and Plan: Depakote and Lexapro, Xanax (7) BPH (benign prostatic hyperplasia): Code(s): N40.0 - Benign prostatic hyperplasia without lower urinary tract symptoms Status: Acute Assessment and Plan: flomax patient with urinary incontinence (8) Obstructive sleep apnea: Code(s): G47.33 - Obstructive sleep apnea (adult) (pediatric) Status: Acute Assessment and Plan: CPAP but non compliant (9) Hyperlipidemia: Code(s): E78.5 - Hyperlipidemia, unspecified Status: Acute (10) Hypertension: Code(s): I10 - Essential (primary) hypertension Status: Acute Assessment and Plan: Cozaar 25mg daily. This has been decreased to 12.5 mg (11) Obesity: Code(s): E66.9 - Obesity, unspecified Status: Acute (12) Chronic pain: Code(s): G89.29 - Other chronic pain Status: Acute Assessment and Plan: patient on Lidoderm patches and p.r.n. Tylenol. 01/05/21 patient started on Neurontin 100 mg q.i.d. (13) Insomnia: Code(s): G47.00 - Insomnia, unspecified Status: Acute Assessment and Plan: patient takes trazodone at bedtime (14) Hyponatremia: Code(s): E87.1 - Hypo-osmolality and hyponatremia Status: Acute Assessment and Plan: sodium 133 (15) Hypoproteinemia: Code(s): E77.8 - Other disorders of glycoprotein metabolism Status: Acute Assessment and Plan: On admit, protein 6.0 albumin 3.3 mildly low. Continue to assess nutrition (16) Shingles: Code(s): B02.9 - Zoster without complications Status: Acute Assessment and Plan: patient on acyclovir ointment. Patient is on acyclovir 800 mg 5 times a day for 7 days. Patient to complete full course of treatment. 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
== END 2021-01-10 10:55 | DRG 57 ==
PROVIDERS: Admitting Provider Physical Medicine & Rehabilitation; PCP Family Medicine; Visit Provider Physical Medicine & Rehabilitation
DX: G20 Parkinson's disease (principal); E66.9 Obesity, unspecified; B02.9 Zoster without complications; E78.5 Hyperlipidemia, unspecified; E77.8 Other disorders of glycoprotein metabolism; E11.9 Type 2 diabetes mellitus without complications; F31.9 Bipolar disorder, unspecified; F41.8 Other specified anxiety disorders; G47.00 Insomnia, unspecified; G47.33 Obstructive sleep apnea (adult) (pediatric); I10 Essential (primary) hypertension; K59.00 Constipation, unspecified; N40.1 Benign prostatic hyperplasia with lower urinary tract symptoms; R32 Unspecified urinary incontinence; Z91.19 Patient's noncompliance with other medical treatment and regimen; Z68.33 Body mass index [BMI] 33.0-33.9, adult; Z79.4 Long term (current) use of insulin; Z20.822 Contact with and (suspected) exposure to COVID-19
CPT/HCPCS: 36415; 80053; 81001; 82948; 85025; 85027; 87426; 92610; 97110; 97116; 97163; 97165; 97530; 97535; 97542; A9270; C9803; J1650; J2930

== ENCOUNTER 2021-01-21 11:57 | Outpatient (RCR) | payer MEDICARE, SELFPAY ==
[2021-01-13 10:50] VITALS: BP 107/70; PULSE 95; RESP 16; TEMP 36.3; O2SAT 97
[2021-01-13 12:00] VITALS: BP 118/69; PULSE 88; RESP 16; TEMP 36.2; O2SAT 100
[2021-01-21 12:27] VITALS: BP 108/76; PULSE 73; RESP 22; TEMP 36; O2SAT 97
[2021-01-21 13:30] VITALS: BP 109/71; PULSE 69; RESP 24; O2SAT 97
[2021-01-21 14:15] VITALS: BP 111/53; PULSE 70; RESP 22; TEMP 36; O2SAT 97
--- NOTE | 2021-01-21 15:13 | PC.NURSE ---
IV Solumedrol infusion complete. IV d/c'd from left forearm, catheter intact. Pt discharged via personal wheelchair to daughter's vehicle. pt tolerated infusion well.
== END 2021-04-13 23:59 | disposition home or self-care (01) ==
LOC: ANHCPCTRAN 11:57
PROVIDERS: PCP Family Medicine
DX: R41.89 Other symptoms and signs involving cognitive functions and awareness (principal); R46.89 Other symptoms and signs involving appearance and behavior
CPT/HCPCS: 96365; J2930